=== PATIENT | female | born 1950 | race Caucasian/White ===

== ENCOUNTER → 2018-07-24 | Outpatient (CLI) | payer MEDICARE ==
[2018-07-24 19:04] LABS: T4, Free (Free Thyroxine) 0.7 ng/dL (0.80-1.80)
[2018-07-24 19:05] LABS: Folate, Serum 17.5 ng/mL
== END | disposition home or self-care (01) ==
LOC: LABWHC1 12:27
PROVIDERS: ATTEND Psychiatry & Neurology Neurology
DX: R41.3 Other amnesia (principal)
CPT/HCPCS: 36415; 82607; 82746; 84439; 84481; 86618

== ENCOUNTER → 2019-12-02 | Outpatient (CLI) | payer MEDICARE ==
--- NOTE | 2019-12-02 23:26 | MR ---
EXAMINATION TYPE: MR shoulder LT wo con DATE OF EXAM: 12/02/2019 COMPARISON: None HISTORY: Shoulder pain and mobility issues Multiplanar multiecho imaging of the left shoulder was performed without contrast. FINDINGS: The subscapularis tendon is intact. Biceps tendon is intact. The glenoid brenna appear intact. Shoulde r joint is anatomic. The AC joint is intact. There is no significant subacromial impingement. The sup raspinatus tendon is intact. There is no retraction. There is no evidence of full-thickness tear. The re is a small area of increased signal in the inferior aspect of the tendon on the coronal images sug gestive of minimal tendinitis. I see no bony destructive process. Scapula is intact. IMPRESSION: Small area of increased signal in the supraspinatus tendon on the inferior surface suggestive of mild tendinitis. No evidence of full-thickness tear. Mild spurring at the AC joint without significant platt bacromial impingement.
== END | disposition home or self-care (01) ==
LOC: RADMRIMAIN 13:24
PROVIDERS: ATTEND Orthopaedic Surgery
DX: M25.712 Osteophyte, left shoulder (principal)

== ENCOUNTER 2020-04-13 07:35 | Day surgery (SDC) | payer MEDICARE ==
[2020-04-11 09:14] VITALS: BMI 27.3
--- NOTE | 2020-04-12 17:46 | HP ---
HISTORY AND PHYSICAL DATE OF SURGERY: 04/13/2020 Orquidea Li is a 70-year-old lady seen with progressive left shoulder pain. We discussed options for treatment. She elected to proceed with arthroscopy. Consent was obtained. PAST MEDICAL HISTORY: Atrial fibrillation, anxiety, hypothyroidism. SURGICAL HISTORY: Appendectomy, tubal ligation, cataract surgery, knee arthroscopy. DAILY MEDICATIONS: Abilify, Eliquis, hydrochlorothiazide, levothyroxine, Zoloft. ALLERGIES: CONTRAST DYE. SOCIAL HISTORY: She denies tobacco use. PHYSICAL EVALUATION OF THE LEFT SHOULDER: Flexion is 120, abduction is 100, external rotation is 30 with some pain and weakness. There is tenderness along the anterolateral acromion and rotator cuff insertion site. Impingement is positive at 90 degrees. Drop-arm sign positive. Distal neurovascular exam is intact. RADIOGRAPHS: Radiographs of the left shoulder revealed a type 2 anterior acromion, acromioclavicular joint osteoarthritis and cystic changes of the greater tuberosity. Left shoulder MRI revealed tendinitis, acromioclavicular joint osteoarthritis. IMPRESSION: 1. Left shoulder impingement with rotator cuff tear. 2. Left shoulder acromioclavicular joint osteoarthritis. 3. Hypertension. 4. Atrial fibrillation. PLAN: Left shoulder arthroscopy with subacromial decompression, possible arthroscopic rotator cuff repair, probable Steve procedure and debridement. MMODL / IJN: [id number] /
[~2020-04-13 07:35] MED LIST: DEXAMETHASONE SOD PHOSPHATE 4 MG/ML 1 ML VIAL IV ONE; HYDROmorphone 0.5 MG/0.5 ML SYRINGE IVP PRN; LACTATED RINGERS 1,000 ML IV SCH; LIDOCAINE 1% (10MG/ML) FOR IV START INTRADERMA PRN; MIDAZOLAM 2 MG/2 ML VIAL IV PRN; ONDANSETRON 4 MG/2 ML VIAL IVP ONE; fentaNYL (PF) 50 MCG/ML 2 ML AMP IV PRN
[2020-04-13] MEDS ORDERED: fentaNYL (PF) 50 MCG/ML 2 ML AMP ONE (09:23)
[2020-04-13] MEDS ORDERED: PROPOFOL 10 MG/ML 20 ML VIAL IV ONE (09:23)
[2020-04-13] MEDS ORDERED: SUCCINYLCHOLINE CHLORIDE 100 MG/5 ML SYR IV ONE (09:23)
[2020-04-13] MEDS ORDERED: DEXAMETHASONE SOD PHOSPHATE 4 MG/ML 1 ML VIAL ONE (09:23)
[2020-04-13] MEDS ORDERED: KETOROLAC 15 MG/ML 1 ML VIAL ONE (09:23)
[2020-04-13] MEDS ORDERED: ROPIVACAINE 5 MG/ML 30 ML VIAL ONE (09:23)
[2020-04-13] MEDS ORDERED: LIDOCAINE 1% INJ 10MG/ML (20 ML MDV) ONE (09:23)
--- NOTE | 2020-04-13 11:07 | P.OP ---
Date of Procedure: 04/13/20 Preoperative Diagnosis: Left shoulder impingement Postoperative Diagnosis: 1. Left shoulder rotator cuff tear 2. Left shoulder impingement 3. Left shoulder acromioclavicular joint osteoarthritis 4. Left shoulder partial long head biceps tendon tear Procedure(s) Performed: 1. Left shoulder arthroscopic rotator cuff repair 2. Left shoulder arthroscopic subacromial decompression 3. Left shoulder arthroscopic Steve procedure 4. Left shoulder arthroscopic biceps tenotomy Implants: 15.5 Arthrex swivel lock anchor Anesthesia: GETA, regional (Interscalene block) Surgeon: Jerrod Recio Estimated Blood Loss (ml): 11 Pathology: none sent Condition: stable Disposition: PACU Indications for Procedure: 70-year-old patient seen with progressive left shoulder pain. After treatment options were discussed, she elected to proceed with arthroscopy. Operative Findings: See description of procedure Description of Procedure: Patient underwent an interscalene block by department of anesthesia. The patient was then taken to the operative suite. The patient underwent a general anesthetic by the department of anesthesia. The patient was placed into a lateral position and secured. There was appropriate padding of the bony prominence. Left shoulder was then prepped and draped in normal sterile orthopedic fashion. We placed the extremity in 10 pounds of longitudinal traction. A posterior incision was now made for a posterior working portal site. The trocar and cannula were inserted into the glenohumeral joint. Arthroscopy was initiated. Spinal needle was now inserted anteriorly, to ascertain the anterior working portal site. An incision was now made in that area, a trocar was inserted followed by a probe. There was hyperemia and partial tearing of the long head biceps tendon. There were grade 2 chondromalacia changes throughout the glenohumeral joint with no evidence for osteochondral tears. There was some mild fraying of the anterior labrum. I performed an arthroscopic biceps tenotomy. I debrided out the superficial fraying of the anterior labrum. The residual labrum was now probed and found to be stable. Instruments were now removed from the glenohumeral joint. Utilizing the posterior working portal site, the trocar and cannula were inserted into the subacromial space. Arthroscopy initiated. I made an incision 2 fingerbreadths lateral to the acromion. I introduced my trocar followed by my ArthroCare ablator. I now began ablating thick subacromial bursal tissue, which exposed the undersurface of the anterior acromion. There was diminished subacromial space. There was a very prominent anterior acromion. A motorized bur was introduced and a subacromial decompression was performed. I also excised some osteophytes off the inferior aspect of the distal clavicle. The AC joint was visualized and noted to be fairly arthritic. The motorized bur was introduced in the anterior portal site and a Steve procedure was performed without difficulty, decompressing the AC joint nicely. I turned my attention to the rotator cuff. There was some superficial tearing of the distal supraspinatus. Upon probing the area I noted a full-thickness perforation. I now debrided those margins getting down to stable tendon tissue. The defect measured 11.5 cm and was freely mobile over the footprint. I abraded the footprint with a motorized bur. I now passed 2 everted mattress sutures through good bites of rotator cuff tendon. I punched hole in the footprint area for insertion of an anchor. All 4 limbs of suture were passed through the eyelet of a 5.5 Arthrex swivel lock anchor. I placed the eyelet into the pre-punch hole. I tensioned all 4 sutures and deployed the anchor with good fixation noted. All residual suture limbs were now clipped. We had good compression of the tendon along the entire footprint. I injected 1 mL Renyte intra-articular. Instruments now removed from the portal sites. All portal sites were approximated with nylon suture. Sterile dressings were applied followed by a shoulder sling. The patient was awakened, transferred to a bed, and taken to recovery in stable condition.
[2020-04-13 11:18] VITALS: TEMP 97
[2020-04-13 13:08] VITALS: BP 142/73; PULSE 80; RESP 18
--- NOTE | 2020-04-15 08:18 | P.ANPRN ---
Procedure Note - Anesthesia - Nerve Block Performed Left Interscalene Single Time Out Performed: Yes Date of Procedure: 04/13/20 Procedure Start Time: 08:53 Procedure Stop Time: 09:02 Location of Patient: PreOp Indication: Acute Post-Operative Pain, Requested by Surgeon Sedation Type: Sedate with meaningful contact maintained Preparation: Sterile Prep Position: Supine Needle Types: Pajunk Needle Gauge: 21 Ultrasound used to visualize needle placement: Yes Ultrasound used to observe medication spread: Yes Blood Aspirated: No Pain Paresthesia on Injection Noted: No Resistance on Injection: Normal Image Stored and Saved: Yes Events: Uneventful and Well Tolerated (ropi .5% 20cc plus dexamethasone 4mg)
== END 2020-04-13 13:26 | disposition home or self-care (01) ==
LOC: OR 07:35
PROVIDERS: ATTEND Orthopaedic Surgery
DX: M75.122 Complete rotator cuff tear or rupture of left shoulder, not specified as traumatic (principal); M19.012 Primary osteoarthritis, left shoulder; S46.112A Strain of muscle, fascia and tendon of long head of biceps, left arm, initial encounter; M75.42 Impingement syndrome of left shoulder; M25.712 Osteophyte, left shoulder; I48.91 Unspecified atrial fibrillation; E03.9 Hypothyroidism, unspecified; F41.1 Generalized anxiety disorder; K21.9 Gastro-esophageal reflux disease without esophagitis; F32.9 Major depressive disorder, single episode, unspecified; D68.51 Activated protein C resistance; E06.3 Autoimmune thyroiditis; I83.893 Varicose veins of bilateral lower extremities with other complications; Z91.041 Radiographic dye allergy status; Z79.01 Long term (current) use of anticoagulants; Z79.890 Hormone replacement therapy; Z79.899 Other long term (current) drug therapy; Z98.890 Other specified postprocedural states; Z98.51 Tubal ligation status; Z98.49 Cataract extraction status, unspecified eye; M85.80 Other specified disorders of bone density and structure, unspecified site; Z91.89 Other specified personal risk factors, not elsewhere classified
CPT/HCPCS: 64415; 76942; 29827; 29826; 29824; Q4212; J2250; J1100; J2405; J0690; J2001; J3010; J2795; J1885; J0330; J2704